=== PATIENT | female | born 1955 | race Caucasian/White ===

== ENCOUNTER → 2022-06-08 | Outpatient (CLI) | LOC: M SOG 15:55 | PROVIDERS: ATTEND Physician Assistant | DX: M79.641 Pain in right hand (principal); M79.644 Pain in right finger(s) ==

== ENCOUNTER 2022-06-27 07:00 | Day surgery (SDC) | payer BC ==
[~2022-06-27] VITALS: Ht 175.3 cm; Wt 89.7 kg
[~2022-06-27 07:00] MED LIST: ALEV220T22 PO; GABA600T4 PO; HYDR12.55 PO; LEVO2TA PO; LISI10TA24; VITMTA PO; ceFAZolin SOD 2 GM in IV 1 EA IV ONE
[2022-06-27] MEDS ORDERED: ROPIvacaine 0.5% 30ML INJECTION (J2795 PER 1MG) PN ONE (07:25)
[2022-06-27] MEDS ORDERED: fentaNYL 100 MCG/2 ML INJECTION IV PRN ×3 (07:25→10:10)
[2022-06-27] MEDS ORDERED: dexameTHASONE 10MG/1ML VIAL PRES.FREE (J1100 PER 1MG) PN ONE (07:25)
[2022-06-27] MEDS ORDERED: LIDOCAINE 1% SDV 5ML VIAL PN ONE (07:25)
[2022-06-27] MEDS ORDERED: LR 1,000 ML IV SCH ×3 (07:30→10:10)
[2022-06-27] MEDS: MIDAZOLAM INJ 2MG/2ML VIAL (J2250 PER 1MG) IV PRN ×2 (07:52→07:57)
[2022-06-27] MEDS ORDERED: ONDANSETRON 4MG 2ML VIAL As Ordered ONE (08:55)
[2022-06-27] MEDS ORDERED: MIDAZOLAM INJ 2MG/2ML VIAL (J2250 PER 1MG) As Ordered ONE (08:55)
[2022-06-27] MEDS ORDERED: propofoL 200 MG/20 ML VIAL As Ordered ONE (08:55)
[2022-06-27] MEDS ORDERED: fentaNYL 100 MCG/2 ML INJECTION As Ordered ONE (08:55)
[2022-06-27] MEDS ORDERED: LIDOCAINE 2% 100MG/5ML SDV (FOR ANES.) As Ordered ONE (08:55)
[2022-06-27] MEDS ORDERED: dexameTHASONE 4 MG/ML 1ML VIAL (J1100 PER 1MG) As Ordered ONE (08:55)
[2022-06-27] MEDS ORDERED: KETOROLAC 60MG 2ML VIAL As Ordered ONE (09:09)
[2022-06-27] MEDS ORDERED: oxyCODONE 5MG TAB PO PRN ×2 (09:10→10:00)
[2022-06-27] MEDS ORDERED: ONDANSETRON 4MG 2ML VIAL IV PRN ×2 (09:10→10:10)
[2022-06-27] MEDS: BACITRACIN OINTMENT 30GM TUBE As Ordered ONE ×2 (09:14→09:15)
[2022-06-27] MEDS ORDERED: BUPIVACAINE HCL 0.25% 10ML VIAL As Ordered ONE (09:54)
[2022-06-27] MEDS ORDERED: HYDR-3713 PO (10:23)
[2022-06-27 11:50] VITALS: BP 133/91
== END 2022-06-27 11:50 | disposition home or self-care (01) ==
LOC: M SDC 07:00
PROVIDERS: ATTEND Orthopaedic Surgery Hand Surgery
DX: M18.11 Unilateral primary osteoarthritis of first carpometacarpal joint, right hand (principal); Z88.5 Allergy status to narcotic agent
CPT/HCPCS: 25447; 76000; 87635; 93005; C1713; J0690; J1100; J1885; J2250; J2405; J3010

== ENCOUNTER → 2022-07-06 | Outpatient (CLI) | payer BC ==
[~2022-07-06] MED LIST changes: +HYDR-3713 PO; -ceFAZolin SOD 2 GM in IV 1 EA IV ONE
== END ==
LOC: M SOG 15:26
PROVIDERS: ATTEND Physician Assistant
DX: M18.11 Unilateral primary osteoarthritis of first carpometacarpal joint, right hand (principal)

== ENCOUNTER → 2022-08-10 | Outpatient (CLI) | payer BC | LOC: M SOG 09:56 | PROVIDERS: ATTEND Orthopaedic Surgery Hand Surgery | DX: Z47.89 Encounter for other orthopedic aftercare (principal) ==

== ENCOUNTER 2022-09-14 06:02 | Day surgery (SDC) | payer BC ==
[~2022-09-14] VITALS: Ht 172.7 cm; Wt 92.1 kg
[~2022-09-14 06:02] MED LIST changes: +LIDOCAINE W/EPINEPHRINE 1% 20ML VIAL XX ONE; +SODIUM BICARBONATE 8.4% INJ 50MEQ 50ML VIAL XX ONE
[2022-09-14] MEDS ORDERED: BACITRACIN OINTMENT 30GM TUBE As Ordered ONE (08:15)
[2022-09-14 09:25] VITALS: BP 137/81
== END 2022-09-14 09:35 | disposition home or self-care (01) ==
LOC: M SDC 06:02
PROVIDERS: ATTEND Orthopaedic Surgery Hand Surgery
DX: M65.341 Trigger finger, right ring finger (principal); M72.0 Palmar fascial fibromatosis [Dupuytren]; Z88.5 Allergy status to narcotic agent